=== PATIENT | female | born 1950 | race Caucasian/White ===

== ENCOUNTER 2018-01-09 06:19 | Day surgery (SDC) | payer MEDICARE, OTHER ==
[~2018-01-09 06:19] MED LIST: ASPIRIN 325 MG TABLET PO PRN; DIAZEPAM 5 MG TABLET PO PRN; DIPHENHYDRAMINE HCL 25 MG CAPSULE PO PRN; DISPOSABLE IV PRN; LIDOCAINE HCL IV PRN; NITROGLYCERIN IV PRN; NORMAL SALINE IV PRN; VERAPAMIL HCL IV PRN; [UNRECOGNIZED DRUG - OTHER] IV PRN
[2018-01-09 06:52] LABS: HEMOGLOBIN 12.7 g/dL (12.0-15.5); MEAN CORPUSCULAR HEMOGLOBIN 28.6 pg (27.0-33.4); MEAN CORPUSCULAR HGB CONC 33.3 g/dL (32.0-36.0); MEAN CORPUSCULAR VOLUME 86 fl (80-97); PLATELET COUNT 253 10^3/uL (150-450); RED BLOOD COUNT 4.43 10^6/uL (3.72-5.28); RED CELL DISTRIBUTION WIDTH 13.2 % (11.5-14.0); WHITE BLOOD COUNT 5.5 10^3/uL (4.0-10.5)
[2018-01-09 07:09] LABS: ANION GAP 15 (5-19); BLOOD UREA NITROGEN 22 mg/dL (7-20); CALCIUM 10.3 mg/dL (8.4-10.2); CARBON DIOXIDE 23 mmol/L (22-30); CHLORIDE 105 mmol/L (98-107); GLUCOSE 140 mg/dL (75-110); POTASSIUM 3.8 mmol/L (3.6-5.0); SODIUM 143.4 mmol/L (137-145)
[2018-01-09 07:12] LABS: INTERNATIONAL RATION (INR) 0.96; PROTHROMBIN TIME 13.3 SEC (11.4-15.4)
[2018-01-09] MEDS ORDERED: DIPHENHYDRAMINE HCL 25 MG CAPSULE ONE (07:43)
[2018-01-09] MEDS ORDERED: ASPIRIN 325 MG TABLET ONE (07:44)
[2018-01-09] MEDS ORDERED: DIAZEPAM 5 MG TABLET ONE (07:44)
[2018-01-09] MEDS ORDERED: MIDAZOLAM 2 MG/2 ML INJ ONE (09:41)
[2018-01-09] MEDS ORDERED: FENTANYL CITRATE INJ/PF 100 MCG/2 ML AMPUL ONE (09:41)
[2018-01-09] MEDS ORDERED: HEPARIN SOD (PORCINE) 5,000 UNIT/ML 1 ML SYRINGE ONE (09:41)
[2018-01-09] MEDS ORDERED: HEPARIN SODIUM,PORCINE/NS/PF 2,000 UNIT/1,000 ML RTUINJ IV ONE (09:43)
[2018-01-09] MEDS ORDERED: LIDOCAINE 1% INJ-PF (10 MG/ML) 30 ML SDV ONE (09:43)
[2018-01-09] MEDS ORDERED: LIDOCAINE HCL IV PRN (10:30)
[2018-01-09] MEDS ORDERED: NORMAL SALINE IV PRN (10:30)
[2018-01-09] MEDS ORDERED: DISPOSABLE IV PRN (10:30)
[2018-01-09] MEDS ORDERED: [UNRECOGNIZED DRUG - OTHER] IV PRN (10:30)
[2018-01-09] MEDS ORDERED: VERAPAMIL HCL IV PRN (10:30)
--- NOTE | 2018-01-09 12:06 | Operative Report ---
Operative Report DATE OF SURGERY: 01/09/18 PREOPERATIVE DIAGNOSIS: Left Heart Catheterization with coronary angiography and left ventriculography POSTOPERATIVE DIAGNOSIS: Normal nonobstructive coronary disease with mild global LV systolic dysfunction. OPERATION: Left heart catheterization with coronary angiography and left ventriculography. SURGEON: VALERY YORK ANESTHESIA: Moderate Sedation COMPLICATIONS: no apparent complications ESTIMATED BLOOD LOSS: minimal INTRAOPERATIVE FINDINGS: Minimal nonobstructive coronary artery disease with mild global LV systolic dysfunction. PROCEDURE: Procedure: 67-year-old female with complaints of recurrent angina pectoris with exertion. A stress test was performed which showed normal Cardiolite perfusion with mild LV systolic dysfunction. Despite no evidence of ischemia nor infarct , the patient continued to have symptoms on medical therapy. For continued symptoms and concern of multivessel disease given her comorbidities, she is referred for diagnostic coronary angiography. Procedures performed: 1. Left heart catheterization. 2. Selective coronary arteriography. 3. Left ventriculography. Publication Distributor: Valery York DO Contrast utilized: 110 mL of Optiray 320 Procedure brief: After informed consent was obtained, the patient was brought to the catheterization lab in stable condition. Bilateral groins and the right wrist were prepped and draped in sterile fashion. The patient was given IV moderate conscious sedation by the cardiac catheterization lab nurse with Versed and fentanyl which was supervised by the machine operator transplanter. The following parameters were monitored: Oxygen saturation, heart rate, blood pressure, and response to care. Total physician intra-service time was 32 minutes. After local infiltration of the right wrist with 2% lidocaine, the right radial artery was punctured with a micropuncture needle and a 6 [place] [id number] hydrophilic sheath was inserted into the right radial artery using modified cylinder technique and a micropuncture kit. The sheath was then flushed with a spasmolytic cocktail of nitroglycerin, verapamil, and lidocaine. The patient was given 5000 units of IV heparin. Next, left heart catheterization was performed using a 6 [place] diagnostic catheter across the aortic valve in a retrograde fashion. Left ventricular pressure was measured and the catheter was positioned retrograde through the aortic valve and pressure measured in the aortic root. Next, selective coronary arteriography was performed using a 6 [place] catheter is seen in the ostium the right coronary artery. Multiple injections were performed in orthogonal views and the catheter was then positioned into the ostium the left main coronary artery. Multiple injections were performed in orthogonal views of the catheter was removed from the body without difficulty. It was exchanged for a 6 [place] pigtail catheter which was used to position retrograde across the aortic valve and left ventricular cavity. Left ventriculogram was performed in the BROWNE projection. The catheter was removed from the body without difficulty. Findings: Left heart hemodynamics LV 122/10, LVEDP 14 Ao 125/57 (87) Coronary arteriography Left main coronary artery: Left main coronary is angiographically normal giving rise to the LAD and left circumflex arteries. Left anterior descending artery: The left anterior descending artery courses over the anterior interventricular septum and terminates across the cardiac apex. The LAD provides 2 major diagonal branch arteries. The LAD has minimal irregularities throughout its course. 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 There is no significant obstructive disease throughout the LAD system. The first major diagonal branch artery is large caliber and has minimal irregularity. The second diagonal branch artery is of smaller caliber and angiographically normal. Left circumflex artery: The left circumflex artery is a large-caliber artery and gives rise to one large obtuse marginal branch artery. After the bifurcation of the obtuse marginal branch artery, the left AV groove is quite small caliber and terminates into small left posterolateral branches. The left circumflex artery and the obtuse marginal branch artery harbor minimal luminal irregularities. Right coronary artery: The right coronary artery is the dominant vessel gives rise to the right posterior descending artery. The right coronary artery has no significant luminal irregularity throughout its course. It bifurcates normally into the right posterior descending artery and the right posterolateral artery. These terminal branches have no significant disease but are of very small caliber. Left ventriculography: In the BROWNE projection, the LV is mildly dilated. There is global LV systolic dysfunction with ejection fraction 45-50%. There is no significant mitral regurgitation. Right radial artery sheath was removed and hemostasis achieved with the TR band. The patient tolerated the procedure well and there were no apparent complications at the end of the case. There is very minimal blood loss. Impression: 1. Very minimal coronary artery disease, out of proportion to the level of cardiomyopathy. 2. No evidence of aortic stenosis. 3. Mild global LV systolic dysfunction, EF 45-50%. 4. Trace mitral regurgitation. Plan: 1. Continue optimal medical therapy. 2. Follow-up with Dr. Louie as an outpatient. I appreciate the opportunity to help participate in this patient's cardiovascular care. If you should have any questions for me regarding this patient's cardiac catheterization, please do not hesitate to contact me at the [facility].
--- NOTE | 2018-01-09 12:15 | Discharge Summary ---
Discharge Summary (SDC) - Discharge Final Diagnosis: Minimal nonobstructive coronary disease Mild global LV systolic dysfunction Date of Surgery: 01/09/18 Discharge Date: 01/09/18 Condition: Good Treatment or Instructions: 1. No lifting greater than 10 pounds for the next week. 2. Shower only for the next 7 days. 3. No operating heavy machinery for the next 24 hours. 4. Please refer to discharge medications for complete list of medications and other medication instructions. Do NOT restart metformin until Monday morning, January 12, 2018. 5. If you notice any severe pain, redness, or swelling in the right wrist, call the [facility] immediately. 6. Follow-up with Dr. Louie on January 17 as planned Discharge Diet: Cardiac, Diabetic Discharge Activity: No Lifting Over 10 Pounds Home Care Assistance: None Needed Report the Following to Your Physician Immediately: Increase in Pain, Fever over 101 Degrees, Unusual Bleeding, Redness, Swelling, Tingling Sensation
[2018-01-09 13:57] VITALS: BP 123/67
== END 2018-01-09 14:18 | disposition home or self-care (01) ==
LOC: CCL 06:19
PROVIDERS: ATTEND Internal Medicine Cardiovascular Disease
PROC: 4A023N7 Measurement of Cardiac Sampling and Pressure, Left Heart, Percutaneous Approach (ICD-10-PCS; principal; 2018-01-09)
DX: I50.20 Unspecified systolic (congestive) heart failure (principal); I25.119 Atherosclerotic heart disease of native coronary artery with unspecified angina pectoris; R07.9 Chest pain, unspecified; I11.9 Hypertensive heart disease without heart failure; E03.9 Hypothyroidism, unspecified; E70.1 Other hyperphenylalaninemias; E66.9 Obesity, unspecified; E11.9 Type 2 diabetes mellitus without complications; E53.8 Deficiency of other specified B group vitamins; Z88.0 Allergy status to penicillin; Z88.2 Allergy status to sulfonamides; Z79.899 Other long term (current) drug therapy
CPT/HCPCS: 36415; 83735; 85027; 85610; 80048; 93458; J2250; A9270 ×3; J1644 ×2; J3010; J3490 ×5

== ENCOUNTER 2018-06-01 16:15 | Emergency (ER) | payer MEDICARE, OTHER ==
--- NOTE | 2018-06-01 17:32 | ER Document Report ---
ED Medical Screen (RME) - General Chief Complaint: Chest Pain Stated Complaint: CHEST PAIN Time Seen by Provider: 06/01/18 17:19 Mode of Arrival: Ambulatory Information source: Patient, [facility] Records Notes: 67-year-old female with type 2 diabetes, hyperlipidemia, hypertension, hypothyroidism presents with complaint of left-sided chest pain that started last night while in the shower. Patient describes the pain as intermittent, burning and worse with movement. Patient denies any associated nausea, vomiting , shortness of breath, recent illness. Patient states that she was seen by Dr. Louie and a stress test was performed at [facility] but she is on sure of the results. She does state that she was told that she has a "weak heart". Patient does admit to increased stress with the sister who is in the hospital recently underwent open heart surgery. Patient did have a cardiac cath here in December 2017. I have greeted and performed a rapid initial assessment of this patient. A comprehensive ED assessment and evaluation of the patient, analysis of test results and completion of medical decision making process we will be contacted by additional ED providers. PHYSICAL EXAMINATION: GENERAL: Well-appearing, well-nourished and in no acute distress. HEAD: Atraumatic, normocephalic. EYES: Pupils equal round extraocular movements intact, conjunctiva are normal. LUNGS: CTAB Cardio. Regular rate rhythm without murmurs. Musculoskeletal: Normal range of motion NEUROLOGICAL: Normal speech, normal gait. PSYCH: Normal mood, normal affect. SKIN: Warm, Dry, normal turgor, no rashes or lesions noted. TRAVEL OUTSIDE OF THE [place] IN LAST 30 DAYS: No - HPI Onset: Yesterday Onset/Duration: Sudden, Intermittent Quality of pain: Burning, Other - tightness Severity: Mild Associated Symptoms: Chest pain. denies: Cough (productive), Shortness of breath Exacerbated by: Movement Relieved by: Remaining still Similar symptoms previously: No Recently seen / treated by doctor: Yes - Related Data Smoking: Non-smoker Frequency of alcohol use: None Drug Abuse: None Allergies/Adverse Reactions: silicone Allergy (Intermediate, Verified 01/09/18 07:01) INFECTION IN EAR Penicillins Allergy (Mild, Verified 01/09/18 07:01) RASH,ITCHING Sulfa (Sulfonamide Antibiotics) Allergy (Unknown, Verified 01/09/18 07:01) Past Medical History - Social History Chew tobacco use (# tins/day): No Frequency of alcohol use: None Drug Abuse: None - Past Medical History Cardiac Medical History: Reports: Hx Hypercholesterolemia, Hx Hypertension Denies: Hx Coronary Artery Disease, Hx Heart Attack Pulmonary Medical History: Denies: Hx Asthma, Hx Bronchitis, Hx COPD, Hx Pneumonia Neurological Medical History: Denies: Hx Cerebrovascular Accident, Hx Seizures Endocrine Medical History: Reports: Hx Diabetes Mellitus Type 2 Renal/ Medical History: Denies: Hx Peritoneal Dialysis Musculoskeltal Medical History: Denies Hx Arthritis Past Surgical History: Reports: Hx Orthopedic Surgery - right elbow, Hx Tubal Ligation - Immunizations Hx Diphtheria, Pertussis, Tetanus Vaccination: No History of Influenza Vaccine for 06/2017 - 11/2017 Season: Yes Physical Exam - Vital signs Vitals: Temp Pulse Resp BP Pulse Ox 98.4 F 97 18 143/68 H 94 06/01/18 16:21 06/01/18 16:21 06/01/18 16:21 06/01/18 16:21 06/01/18 16:21 Course - Vital Signs Vital signs: Temp Pulse Resp BP Pulse Ox 98.4 F 97 18 143/68 H 94 06/01/18 16:21 06/01/18 16:21 06/01/18 16:21 06/01/18 16:21 06/01/18 16:21
[2018-06-01] MEDS ORDERED: ASPIRIN 81 MG TABLET, CHEWABLE PO ONE (17:35)
[2018-06-01 18:18] LABS: ABSOLUTE BASOPHILS # (AUTO) 0.1 10^3/uL (0.0-0.2); ABSOLUTE EOSINOPHILS # (AUTO) 0.2 10^3/uL (0.0-0.6); ABSOLUTE LYMPHOCYTES (AUTO) 1.7 10^3/uL (0.5-4.7); ABSOLUTE MONOCYTES (AUTO) 0.5 10^3/uL (0.1-1.4); ABSOLUTE NEUT (AUTO) 3.7 10^3/uL (1.7-8.2); BASOPHILS % (AUTO) 0.8 % (0-2); EOSINOPHILS % (AUTO) 2.8 % (0-6); HEMATOCRIT 37.4 % (36.0-47.0); HEMOGLOBIN 12.2 g/dL (12.0-15.5); LYMPHOCYTES % (AUTO) 27.4 % (13-45); MEAN CORPUSCULAR HEMOGLOBIN 27.8 pg (27.0-33.4); MEAN CORPUSCULAR HGB CONC 32.6 g/dL (32.0-36.0); MEAN CORPUSCULAR VOLUME 85 fl (80-97); MONOCYTES % (AUTO) 7.7 % (3-13); PLATELET COUNT 300 10^3/uL (150-450); RED BLOOD COUNT 4.38 10^6/uL (3.72-5.28); SEGMENTED NEUTROPHILS % (AUTO) 61.3 % (42-78); TOTAL CELLS COUNTED % (AUTO) 100 %
--- NOTE | 2018-06-01 18:30 | RADIOLOGY REPORT (SQ) ---
EXAM DESCRIPTION: CHEST 2 VIEWS COMPLETED DATE/TIME: 06/01/2018 6:20 pm REASON FOR STUDY: chest pain COMPARISON: August 2012 EXAM PARAMETERS: NUMBER OF VIEWS: two views TECHNIQUE: Digital Frontal and Lateral radiographic views of the chest acquired. RADIATION DOSE: NA LIMITATIONS: none FINDINGS: LUNGS AND PLEURA: No opacities, masses or pneumothorax. No pleural effusion. MEDIASTINUM AND HILAR STRUCTURES: No masses or contour abnormalities. HEART AND VASCULAR STRUCTURES: Heart normal size. No evidence for failure. BONES: No acute findings. HARDWARE: None in the chest. OTHER: No other significant finding. IMPRESSION: NO ACUTE RADIOGRAPHIC FINDING IN THE CHEST. TECHNICAL DOCUMENTATION: JOB ID: [id number] [employer]- All Rights Reserved Reading location - IP/workstation name: [email or web address]
[2018-06-01 18:31] LABS: APPEARANCE,URINE CLOUDY; BILIRUBIN,URINE NEGATIVE (NEGATIVE); COLOR,URINE YELLOW; GLUCOSE, URINE NEGATIVE (NEGATIVE); KETONES,URINE NEGATIVE (NEGATIVE); LEUKOCYTE ESTERASE,URINE LARGE (NEGATIVE); NITRITE,URINE NEGATIVE (NEGATIVE); PROTEIN,URINE 30 mg/dL (NEGATIVE); URINE SPECIFIC GRAVITY 1.019; UROBILINOGEN,URINE NEGATIVE mg/dL (<2.0)
[2018-06-01 18:36] LABS: ALANINE AMINOTRANSFERASE 15 U/L (9-52); ALBUMIN 4.5 g/dL (3.5-5.0); ALKALINE PHOSPHATASE 62 U/L (38-126); ANION GAP 12 (5-19); ASPARTATE AMINO TRANSFERASE 26 U/L (14-36); BILIRUBIN,DIRECT 0.3 mg/dL (0.0-0.4); BILIRUBIN,TOTAL 0.4 mg/dL (0.2-1.3); BLOOD UREA NITROGEN 21 mg/dL (7-20); CALCIUM 9.8 mg/dL (8.4-10.2); CARBON DIOXIDE 23 mmol/L (22-30); CHLORIDE 107 mmol/L (98-107); GLUCOSE 99 mg/dL (75-110); POTASSIUM 4.1 mmol/L (3.6-5.0); SODIUM 142.3 mmol/L (137-145); TOTAL PROTEIN 8.2 g/dL (6.3-8.2)
[2018-06-01 18:47] LABS: NT PRO BNP 101 pg/mL (5-900)
[2018-06-01 18:48] LABS: TROPONIN I < 0.012 ng/mL
--- NOTE | 2018-06-01 19:14 | EKG REPORT ---
SEVERITY:- ABNORMAL ECG - SINUS RHYTHM PAIRED VENTRICULAR PREMATURE COMPLEXES NONSPECIFIC ST-T CHANGES LATERAL LEADS : Confirmed by: Cornell Candelaria MD 01-Jun-2018 19:13:49
[2018-06-02] MEDS ORDERED: CEPHALEXIN 500 MG CAPSULE PO ONE (00:43)
--- NOTE | 2018-06-02 00:44 | ER Document Report ---
ED General - General Chief Complaint: Chest Pain Stated Complaint: CHEST PAIN Time Seen by Provider: 06/01/18 17:19 Mode of Arrival: Ambulatory Notes: Patient is a 67-year-old female with a past medical history of hypertension, hyperlipidemia, hypothyroidism who presents with continuous left-sided chest discomfort last evening. Approximately total of 36 hours in duration. She notes that the chest pain has now resolved since being here in the emergency department and is currently chest pain-free. She states that the pain started rapidly and has been ongoing since that time. Worsened by movement. Nothing improves the pain. Denies history of similar symptoms in the past. She describes it as a burning, stabbing pain. She has not contacted her general doctor regarding today's concerns. Had a normal cardiac catheterization in December of this year. Denies any associated nausea, vomiting or diaphoresis. No history of DVT or pulmonary embolus. TRAVEL OUTSIDE OF THE [place] IN LAST 30 DAYS: No - Related Data Allergies/Adverse Reactions: silicone Allergy (Intermediate, Verified 01/09/18 07:01) INFECTION IN EAR Penicillins Allergy (Mild, Verified 01/09/18 07:01) RASH,ITCHING Sulfa (Sulfonamide Antibiotics) Allergy (Unknown, Verified 01/09/18 07:01) Past Medical History - General Information source: Patient, [facility] Records - Social History Smoking Status: Never Smoker Chew tobacco use (# tins/day): No Frequency of alcohol use: None Drug Abuse: None Lives with: Spouse/Significant other Family History: Reviewed & Not Pertinent Patient has suicidal ideation: No Patient has homicidal ideation: No - Past Medical History Cardiac Medical History: Reports: Hx Hypercholesterolemia, Hx Hypertension Denies: Hx Coronary Artery Disease, Hx Heart Attack Pulmonary Medical History: Denies: Hx Asthma, Hx Bronchitis, Hx COPD, Hx Pneumonia Neurological Medical History: Denies: Hx Cerebrovascular Accident, Hx Seizures Endocrine Medical History: Reports: Hx Diabetes Mellitus Type 2 Renal/ Medical History: Denies: Hx Peritoneal Dialysis Musculoskeletal Medical History: Denies Hx Arthritis Past Surgical History: Reports: Hx Orthopedic Surgery - right elbow, Hx Tubal Ligation - Immunizations Hx Diphtheria, Pertussis, Tetanus Vaccination: No Hx Pneumococcal Vaccination: 10/26/17 Review of Systems - Review of Systems Notes: Constitutional: Negative for fever. HENT: Negative for sore throat. Eyes: Negative for visual changes. Cardiovascular: Positive for chest pain. Respiratory: Negative for shortness of breath. Gastrointestinal: Negative for abdominal pain, vomiting or diarrhea. Genitourinary: Negative for dysuria. Musculoskeletal: Negative for back pain. Skin: Negative for rash. Neurological: Negative for headaches, weakness or numbness. 10 point ROS negative except as marked above and in HPI. Physical Exam - Vital signs Vitals: Temp Pulse Resp BP Pulse Ox 98.4 F 97 18 143/68 H 94 06/01/18 16:21 06/01/18 16:21 06/01/18 16:21 06/01/18 16:21 06/01/18 16:21 Interpretation: Hypertensive Notes: PHYSICAL EXAMINATION: GENERAL: Well-appearing, well-nourished and in no acute distress. HEAD: Atraumatic, normocephalic. EYES: Pupils equal round and reactive to light, extraocular movements intact, sclera anicteric, conjunctiva are normal. ENT: nares patent, oropharynx clear without exudates. Moist mucous membranes. NECK: Normal range of motion, supple without lymphadenopathy LUNGS: Breath sounds clear to auscultation bilaterally and equal. No wheezes rales or rhonchi. HEART: Regular rate and rhythm without murmurs ABDOMEN: Soft, nontender, normoactive bowel sounds. No guarding, no rebound. No masses appreciated. EXTREMITIES: Normal range of motion, no pitting or edema. No cyanosis. NEUROLOGICAL: No focal neurological deficits. Moves all extremities spontaneously and on command. PSYCH: Normal mood, normal affect. SKIN: Warm, Dry, normal turgor, no rashes or lesions noted. Course - Re-evaluation Re-evalutation: 06/02/18 00:41 Presentation of chest pain in an otherwise well appearing patient. Low clinical suspicion for ACS given clinical history, exam, EKG without ST elevations or depressions, and negative initial troponin. HEART score less than or equal to 3. PE also seems unlikely given clinical history, absence of tachycardia or dyspnea. Wells score is 0. CXR without evidence of pneumothorax or pneumonia. No widened mediastinum. Aortic dissection also seems unlikely given history, symmetric pulses, CXR, and vitals. Delta troponin remained normal. Patient has also been chest pain-free for the entire time here in the emergency department. Exact detail chest pain is unclear but does not appear to be from any immediate life-threatening cause. Her cardiac catheterization from December of this year did not show any obstructive coronary artery disease. The patient does also have findings consistent with pyelonephritis on her urinalysis although denies symptoms and there are no exam findings to suggest this diagnosis. However given the marked degree of infection on urinalysis she will be empirically treated with a course of antibiotics and a culture has been sent. At this time will discharge with return precautions and follow-up recommendations. Verbal discharge instructions given a the bedside and opportunity for questions given. Medication warnings reviewed. Patient is in agreement with this plan and has verbalized understanding of return precautions and the need for primary care follow-up in the next 24-72 hours. - Vital Signs Vital signs: Temp Pulse Resp BP Pulse Ox 98.7 F 89 18 143/83 H 97 06/02/18 00:50 06/02/18 00:50 06/02/18 00:50 06/02/18 00:50 06/02/18 00:50 - Laboratory Result Diagrams: 06/01/18 17:54 06/01/18 17:54 Laboratory results interpreted by me: 06/01/18 06/01/18 17:54 17:54 BUN 21 H Urine Protein 30 H Ur Leukocyte Esterase LARGE H - Diagnostic Test Radiology reviewed: Image reviewed, Reports reviewed Radiology results interpreted by me: 06/02/18 00:42 Chest x-ray: No acute infiltrate or pneumothorax - EKG Interpretation by Me Additional EKG results interpreted by me: 06/02/18 00:42 Sinus rhythm. Rate 91. Intermittent PVCs. No ST elevations or depressions. QTC is 443. Discharge - Discharge Clinical Impression: Urinary tract infection Qualifiers: Urinary tract infection type: site unspecified Hematuria presence: without hematuria Qualified Code(s): N39.0 - Urinary tract infection, site not specified Chest pain Qualifiers: Chest pain type: unspecified Qualified Code(s): R07.9 - Chest pain, unspecified Condition: Good Disposition: HOME, SELF-CARE Additional Instructions: Your urine shows findings consistent with a urinary tract infection. Please take all the antibiotics as directed even if your symptoms have improved. Please follow-up with your primary care physician as needed. Return to emergency room if you develop fever >101F, persistent vomiting, become lethargic , have severe pain in your sides, or any other symptoms that are concerning to you. You were seen today for chest pain. The exact cause of your pain is unclear. However, based on your cardiac enzyme testing, chest x-ray, and EKG it does not appear that it is from an immediately life-threatening cause at this time. Although your testing here is normal is critical that you follow-up with your primary care physician for continued evaluation of this chest pain and possible stress testing. I recommended you see your physician within the next 24-48 hours to be evaluated for consideration of a stress test. Please return to emergency department immediately if you have worsening of your chest pain, shortness of breath, vomiting, become unable to exert yourself due to pain or difficulty breathing, you pass out, or have any pain that radiates into your arms, jaw, or back. Please also return if you have any additional symptoms that are concerning to you. Prescriptions: Cephalexin Monohydrate [Keflex 500 mg Capsule] 500 mg PO Q6H 5 Days capsule
[2018-06-02 01:05] VITALS: BP 143/83
== END 2018-06-02 01:05 | disposition home or self-care (01) ==
LOC: ER 16:15
DX: N39.0 Urinary tract infection, site not specified (principal); R07.9 Chest pain, unspecified; I10 Essential (primary) hypertension; E78.5 Hyperlipidemia, unspecified; E03.9 Hypothyroidism, unspecified; E11.9 Type 2 diabetes mellitus without complications
CPT/HCPCS: 93005; 99285; 36415; 87086; 85025; 87088; 80053; 81001; 84484; 87186; 83880; 71046; 93010; A9270 ×2

== ENCOUNTER 2019-01-07 10:00 | Day surgery (SDC) | payer MEDICARE, OTHER ==
[~2019-01-07 10:00] MED LIST changes: -ASPIRIN 325 MG TABLET PO PRN; -DIAZEPAM 5 MG TABLET PO PRN; -DIPHENHYDRAMINE HCL 25 MG CAPSULE PO PRN; -DISPOSABLE IV PRN; -LIDOCAINE HCL IV PRN; -NITROGLYCERIN IV PRN; -NORMAL SALINE IV PRN; +PROPOFOL INJ 200 MG/20 ML VIAL IV ONE; -VERAPAMIL HCL IV PRN; -[UNRECOGNIZED DRUG - OTHER] IV PRN
[2019-01-07 12:34] VITALS: BP 125/95
--- NOTE | 2019-01-07 12:50 | Operative Report ---
Operative Report DATE OF SURGERY: 01/07/19 Operative Report: The risks, benefits and alternatives of the procedure including the risk of bleeding, perforation requiring surgery have been explained to the patient in detail and informed consent has been obtained. Patient was taken back to the endoscopy suite and placed in the left, lateral decubital position. Timeout was called. Propofol medication is administered. Rectal examination was done which did not reveal any masses, tears or fissures. An Olympus videoscope was introduced into the patient's rectum. Scope was then carefully advanced all the way to the cecum. Cecum was identified by the usual anatomical landmarks including the ileocecal valve as well as the appendiceal office. Photodocumentation is obtained. The scope was then sequentially pulled back via the various segments of the colon including the ascending colon, hepatic flexure, transverse colon, splenic flexure, descending colon and finally into the rectosigmoid portions of the colon. Retroflexion maneuver was performed. PREOPERATIVE DIAGNOSIS: Personal history of polyp POSTOPERATIVE DIAGNOSIS: Small sessile cecal polyp removed via biopsy forceps. Diverticulosis without any evidence of diverticulitis OPERATION: Colonoscopy with biopsy SURGEON: KELLI FRANCO ANESTHESIA: LMAC TISSUE REMOVED OR ALTERED: As noted above. COMPLICATIONS: None. ESTIMATED BLOOD LOSS: None. INTRAOPERATIVE FINDINGS: As noted above. PROCEDURE: Patient tolerated the procedure well. No immediate postprocedure complications are noted. Patient discharged in good condition. Discharge date 01/07/2019. Discharge diet: Regular. Discharge activity: Regular. 2-3-week follow-up to discuss findings. Patient is instructed to call the office or proceed to the emergency room should there be any further problems or questions. Wait on the pathology. Likely 5-year surveillance colonoscopy.
== END 2019-01-07 12:18 | disposition home or self-care (01) ==
LOC: END 10:00
PROVIDERS: ATTEND Internal Medicine Gastroenterology
DX: Z12.11 Encounter for screening for malignant neoplasm of colon (principal); K57.30 Diverticulosis of large intestine without perforation or abscess without bleeding; D12.0 Benign neoplasm of cecum; I11.9 Hypertensive heart disease without heart failure; E66.9 Obesity, unspecified; I42.8 Other cardiomyopathies; E78.01 Familial hypercholesterolemia; E53.8 Deficiency of other specified B group vitamins; E03.9 Hypothyroidism, unspecified; G47.30 Sleep apnea, unspecified; Z88.0 Allergy status to penicillin; Z88.2 Allergy status to sulfonamides; Z68.33 Body mass index [BMI] 33.0-33.9, adult; Z79.899 Other long term (current) drug therapy; Z79.84 Long term (current) use of oral hypoglycemic drugs
CPT/HCPCS: 45380; 82962; 88305 ×2; J2704; 811

== ENCOUNTER 2019-05-30 13:41 | Emergency (ER) | payer MEDICARE, OTHER ==
[2019-05-30] MEDS ORDERED: DOXYCYCLINE HYCLATE 100 MG TABLET PO ONE (14:17)
--- NOTE | 2019-05-30 14:26 | ER Document Report ---
ED Skin Rash/Insect Bite/Abscs - General Chief Complaint: Skin Problem Stated Complaint: ABSCESS Time Seen by Provider: 05/30/19 14:04 Primary Care Provider: CHU CALDERON MD [Primary Care Provider] - 06/03/19 TRAVEL OUTSIDE OF THE [place] IN LAST 30 DAYS: No - HPI Notes: 68-year-old female to the emergency department with complaints of a possible abscess to her anterior neck that started 2 days ago. She states that she has an area that is swollen and firm to touch. She states that "it seems to have fever and it". She states that she often will pick at her face and she was picking in a area at her neck approximately 3 days ago. Following day it began to swell and to get more red. She denies any difficulty breathing. She denies any fevers, chills, chest pain, shortness of breath, tongue swelling, mouth pain, wheezing, stridor, or any other complaints. She is a diabetic. - Related Data Allergies/Adverse Reactions: silicone Allergy (Intermediate, Verified 05/30/19 13:46) INFECTION IN EAR Penicillins Allergy (Mild, Verified 05/30/19 13:46) RASH,ITCHING Sulfa (Sulfonamide Antibiotics) Allergy (Unknown, Verified 05/30/19 13:46) Past Medical History - General Information source: Patient - Social History Smoking Status: Never Smoker Frequency of alcohol use: None Drug Abuse: None Family History: Reviewed & Not Pertinent Patient has suicidal ideation: No Patient has homicidal ideation: No - Past Medical History Cardiac Medical History: Reports: Hx Hypercholesterolemia, Hx Hypertension Denies: Hx Coronary Artery Disease, Hx Heart Attack Pulmonary Medical History: Denies: Hx Asthma, Hx Bronchitis, Hx COPD, Hx Pneumonia Neurological Medical History: Denies: Hx Cerebrovascular Accident, Hx Seizures Endocrine Medical History: Reports: Hx Diabetes Mellitus Type 2 Renal/ Medical History: Denies: Hx Peritoneal Dialysis Musculoskeletal Medical History: Denies Hx Arthritis Past Surgical History: Reports: Hx Orthopedic Surgery - right elbow, Hx Tubal Ligation - Immunizations Hx Diphtheria, Pertussis, Tetanus Vaccination: No Hx Pneumococcal Vaccination: 10/26/17 Review of Systems - Review of Systems Constitutional: denies: Chills, Fever EENT: denies: Throat pain, Difficulty swallowing, Throat swelling Cardiovascular: denies: Chest pain, Palpitations, Dyspnea, Syncope, Dizziness, Lightheaded Respiratory: denies: Cough, Short of breath Gastrointestinal: denies: Abdominal pain, Diarrhea, Nausea, Vomiting Genitourinary: No symptoms reported Skin: See HPI, Other Hematologic/Lymphatic: No symptoms reported Neurological/Psychological: No symptoms reported -: Yes All other systems reviewed and negative Physical Exam - Vital signs Vitals: Temp Pulse Resp BP Pulse Ox 98.1 F 108 H 18 139/76 H 99 05/30/19 13:47 05/30/19 13:47 05/30/19 13:47 05/30/19 13:47 05/30/19 13:47 Interpretation: Normal - General General appearance: Appears well, Alert In distress: None - HEENT Head: Normocephalic, Atraumatic Eyes: Normal Pupils: PERRL Ears: Normal External canal: Normal Tympanic membrane: Normal Sinus: Normal Nasal: Normal Mouth/Lips: Normal Mucous membranes: Normal Pharynx: No: Erythema, Exudate, Peritonsillar abscess, Post nasal drainage, Retropharyngeal abscess, Tonsillar hypertrophy, Uvular edema, Potential airway comprom. Neck: Other - To the anterior neck there is an area of induration and erythema. There is no fluctuance. Bedside ultrasound does not reveal any areas of pus pocket. - Respiratory Respiratory status: No respiratory distress Chest status: Nontender Breath sounds: Normal Chest palpation: Normal - Cardiovascular Rhythm: Regular Heart sounds: Normal auscultation Murmur: No - Neurological Neuro grossly intact: Yes Cognition: Normal Orientation: AAOx4 [place] Coma Scale Eye Opening: Spontaneous [place] Coma Scale Verbal: Oriented [place] Coma Scale Motor: Obeys Commands [place] Coma Scale Total: 15 Speech: Normal Cranial nerves: Normal. No: Facial palsy, Forehead sparing, Gaze palsy, Sensory deficit, Tongue deviation Cerebellar coordination: Normal Motor strength normal: LUE, RUE, LLE, RLE Additional motor exam normals: No: Equal elevated work platform operator, Pronator drift Sensory: Normal - Psychological Associated symptoms: Normal affect, Normal mood - Skin Skin Temperature: Warm Skin Moisture: Dry Skin Color: Normal Course - Re-evaluation Re-evalutation: 05/30/19 Impression: Next cellulitis. + Ultrasound does not reveal pus pocket for drainage. We will go ahead and start patient on doxycycline and have her return in 2 days for wound check. Did lowell the area of cellulitis and dated. I have encouraged patient to return sooner in the next 24 hours if the redness and swelling increase outside of this area. She agrees with the plan. Will discharge home. - Vital Signs Vital signs: Temp Pulse Resp BP Pulse Ox 98.3 F 98 15 137/73 H 93 05/30/19 14:27 05/30/19 14:27 05/30/19 14:27 05/30/19 14:27 05/30/19 14:27 Discharge - Discharge Clinical Impression: Cellulitis Qualifiers: Site of cellulitis: neck Qualified Code(s): L03.221 - Cellulitis of neck Condition: Stable Disposition: HOME, SELF-CARE Instructions: Cellulitis ([facility]) Additional Instructions: Apply warm compresses to the site 3 times a day for 20 minutes. Take doxycycline as prescribed twice a day until completion. Return in 2 days for wound check. Return sooner if swelling and redness increase outside of the marker. Push fluids. Prescriptions: Doxycycline Hyclate 100 mg PO BID #6 capsule Doxycycline Hyclate 100 mg PO BID #14 capsule Referrals: CHU CALDERON MD [Primary Care Provider] - 06/03/19
[2019-05-30 14:29] VITALS: BP 137/73
== END 2019-05-30 15:20 | disposition home or self-care (01) ==
LOC: ER 13:41
DX: L03.221 Cellulitis of neck (principal); I10 Essential (primary) hypertension; E11.9 Type 2 diabetes mellitus without complications
CPT/HCPCS: 99282; A9270

== ENCOUNTER 2019-06-01 08:00 | Emergency (ER) | payer MEDICARE, OTHER ==
[2019-06-01 08:04] VITALS: BP 146/81
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
== END 2019-06-01 09:27 | disposition home or self-care (01) ==
LOC: ER 08:00
DX: L03.221 Cellulitis of neck (principal); I10 Essential (primary) hypertension; E11.9 Type 2 diabetes mellitus without complications
CPT/HCPCS: 99282

== ENCOUNTER 2019-11-06 17:05 | Emergency (ER) | payer MEDICARE, OTHER ==
[2019-11-06 17:21] VITALS: BP 141/83
--- NOTE | 2019-11-06 18:27 | ER Document Report ---
ED Medical Screen (RME) - General Chief Complaint: Flank Pain Stated Complaint: LOWER ABDOMINAL/BACK PAIN Time Seen by Provider: 11/06/19 18:21 Primary Care Provider: CHU CALDERON MD [Primary Care Provider] - Follow up as needed Notes: Patient is a 68-year-old female with a history of hypothyroidism, hypertension, type 2 diabetes who presents emergency department with abdominal pain. Patient reports that starting on Monday she has had intermittent right lower quadrant pain. Patient denies pain at this time. Patient reports she is also having some low back pain. Denies urinary symptoms. Reports of subjective fever as she did wake up sweating today around 11 AM. Patient reports she has not taken her temperature. Patient denies vomiting or diarrhea. Patient reports having normal bowel movements. TRAVEL OUTSIDE OF THE [place] IN LAST 30 DAYS: No - Related Data Allergies/Adverse Reactions: silicone Allergy (Intermediate, Verified 11/06/19 18:15) INFECTION IN EAR Penicillins Allergy (Mild, Verified 11/06/19 18:15) RASH,ITCHING Sulfa (Sulfonamide Antibiotics) Allergy (Unknown, Verified 11/06/19 18:15) Past Medical History - Social History Frequency of alcohol use: None Drug Abuse: None - Past Medical History Cardiac Medical History: Reports: Hx Hypercholesterolemia, Hx Hypertension Denies: Hx Coronary Artery Disease, Hx Heart Attack Pulmonary Medical History: Denies: Hx Asthma, Hx Bronchitis, Hx COPD, Hx Pneumonia Neurological Medical History: Denies: Hx Cerebrovascular Accident, Hx Seizures Endocrine Medical History: Reports: Hx Diabetes Mellitus Type 2 Renal/ Medical History: Denies: Hx Peritoneal Dialysis Musculoskeltal Medical History: Denies Hx Arthritis Past Surgical History: Reports: Hx Orthopedic Surgery - right elbow, Hx Tubal Ligation - Immunizations Hx Diphtheria, Pertussis, Tetanus Vaccination: No Physical Exam - Vital signs Vitals: Temp Pulse Resp BP Pulse Ox 98.1 F 101 H 18 141/83 H 100 11/06/19 17:20 11/06/19 17:20 11/06/19 17:20 11/06/19 17:20 11/06/19 17:20 - Abdominal Inspection: Normal Distension: No distension Bowel sounds: Normal Tenderness: Nontender Organomegaly: No organomegaly Course - Re-evaluation Re-evalutation: 11/06/19 18:26 I have greeted and performed a rapid initial assessment of this patient. A comprehensive ED assessment and evaluation of the patient, analysis of test results and completion of the medical decision making process will be conducted by additional ED providers. - Vital Signs Vital signs: Temp Pulse Resp BP Pulse Ox 98.1 F 101 H 18 141/83 H 100 11/06/19 17:20 11/06/19 17:20 11/06/19 17:20 11/06/19 17:20 11/06/19 17:20 Doctor's Discharge - Discharge Referrals: CHU CALDERON MD [Primary Care Provider] - Follow up as needed
[2019-11-06 20:11] LABS: ABSOLUTE EOSINOPHILS # (AUTO) 0.1 10^3/uL (0.0-0.6); ABSOLUTE LYMPHOCYTES (AUTO) 1.2 10^3/uL (0.5-4.7); ABSOLUTE MONOCYTES (AUTO) 1.1 10^3/uL (0.1-1.4); ABSOLUTE NEUT (AUTO) 7.4 10^3/uL (1.7-8.2); BASOPHILS % (AUTO) 0.5 % (0-2); HEMATOCRIT 34.4 % (36.0-47.0); HEMOGLOBIN 11.5 g/dL (12.0-15.5); LYMPHOCYTES % (AUTO) 12.1 % (13-45); MEAN CORPUSCULAR HEMOGLOBIN 28.7 pg (27.0-33.4); MEAN CORPUSCULAR HGB CONC 33.3 g/dL (32.0-36.0); MEAN CORPUSCULAR VOLUME 86 fl (80-97); MONOCYTES % (AUTO) 11.2 % (3-13); PLATELET COUNT 298 10^3/uL (150-450); RED CELL DISTRIBUTION WIDTH 13.5 % (11.5-14.0); SEGMENTED NEUTROPHILS % (AUTO) 75.2 % (42-78); TOTAL CELLS COUNTED % (AUTO) 100 %; WHITE BLOOD COUNT 9.9 10^3/uL (4.0-10.5)
[2019-11-06 20:14] LABS: APPEARANCE,URINE SLIGHTLY-CLOUDY; BILIRUBIN,URINE NEGATIVE (NEGATIVE); COLOR,URINE YELLOW; GLUCOSE, URINE NEGATIVE (NEGATIVE); KETONES,URINE NEGATIVE (NEGATIVE); LEUKOCYTE ESTERASE,URINE LARGE (NEGATIVE); NITRITE,URINE POSITIVE (NEGATIVE); PROTEIN,URINE 30 mg/dL (NEGATIVE); UROBILINOGEN,URINE NEGATIVE mg/dL (<2.0)
[2019-11-06 20:23] LABS: BLOOD UREA NITROGEN 22 mg/dL (7-20); CALCIUM 9.5 mg/dL (8.4-10.2); CARBON DIOXIDE 21 mmol/L (22-30); CHLORIDE 101 mmol/L (98-107); GLUCOSE 113 mg/dL (75-110); POTASSIUM 3.5 mmol/L (3.6-5.0)
[2019-11-06 20:24] LABS: ALKALINE PHOSPHATASE 105 U/L (38-126); ANION GAP 19 (5-19); ASPARTATE AMINO TRANSFERASE 39 U/L (14-36); BILIRUBIN,DIRECT 0.4 mg/dL (0.0-0.4); BILIRUBIN,TOTAL 0.5 mg/dL (0.2-1.3)
== END 2019-11-07 00:32 | disposition left against medical advice (07) ==
LOC: ER 17:05
DX: R10.9 Unspecified abdominal pain (principal); M54.9 Dorsalgia, unspecified; E03.9 Hypothyroidism, unspecified; I10 Essential (primary) hypertension; E11.9 Type 2 diabetes mellitus without complications; E78.00 Pure hypercholesterolemia, unspecified; Z88.0 Allergy status to penicillin; Z88.2 Allergy status to sulfonamides
CPT/HCPCS: 36415; 80053; 81001; 85025